=== PATIENT | male | born 1995 | race American Indian/Alaskan Native ===

== ENCOUNTER 2018-03-03 20:01 | Emergency (ER) | payer OTHER ==
[2018-03-03 20:53] VITALS: BP 125/78
[2018-03-04] MEDS ORDERED: PROTONIX PO ONE (01:23)
[2018-03-04] MEDS ORDERED: BENTYL PO ONE (01:23)
--- NOTE | 2018-03-04 01:28 | Emergency Department Report ---
ED General Adult HPI - General Chief complaint: Nausea/Vomiting/Diarrhea Stated complaint: INDIGESTION Time Seen by Provider: 03/03/18 23:40 Source: patient Mode of arrival: Ambulatory Limitations: No Limitations - History of Present Illness Initial comments: 22-year-old male comes in complaining of bloating, gas pockets of air, taking Tums and Prilosec which eases the pain but doesn't completely resolve the signs and symptoms. Patient reports a frequent nausea and bloating. He was told by his PCP to change his diet and sleep habits which patient reports he had done without symptom reported improving. Patient is accompanied by his dad. His denies any hematochezia no vomiting no diarrhea. -: month(s) (several) Location: abdomen Severity scale (0 -10): 9 Quality: other (bloating pressure) Consistency: intermittent Improves with: movement (OTC Prilosec but does not resolve the symptoms completely) - Related Data Previous Rx's Medication Instructions Recorded Last Taken Type Esomeprazole Magnesium [Nexium] 40 mg PO QDAY #30 capsule. 03/04/18 Unknown Rx Allergies Allergy/AdvReac Type Severity Reaction Status Date / Time No Known Allergies Allergy Verified 03/04/18 01:30 ED Review of Systems ROS: Stated complaint: INDIGESTION Other details as noted in HPI Constitutional: denies: chills, fever Cardiovascular: denies: chest pain, palpitations Endocrine: no symptoms reported Gastrointestinal: abdominal pain (epigastric bloating,), nausea, other (belching , feeling loaded). denies: vomiting, hematemesis, hematochezia Genitourinary: denies: urgency, dysuria Skin: denies: rash, lesions ED Past Medical Hx - Past Medical History Previous Medical History?: No - Surgical History Past Surgical History?: No - Social History Smoking Status: Never Smoker Substance Use Type: None - Medications Home Medications: Home Medications Medication Instructions Recorded Confirmed Last Taken Type Esomeprazole Magnesium [Nexium] 40 mg PO QDAY #30 capsule. 03/04/18 Unknown Rx ED Physical Exam - General Limitations: No Limitations General appearance: alert, in no apparent distress - Head Head exam: Present: atraumatic, normocephalic - Eye Eye exam: Present: normal appearance - Respiratory Respiratory exam: Present: normal lung sounds bilaterally. Absent: respiratory distress - Cardiovascular Cardiovascular Exam: Present: regular rate, normal rhythm. Absent: systolic murmur, diastolic murmur, rubs, gallop - GI/Abdominal GI/Abdominal exam: Present: tenderness (epigastric), normal bowel sounds. Absent: distended, guarding, rebound, rigid - Extremities Exam Extremities exam: Present: normal inspection - Neurological Exam Neurological exam: Present: alert, oriented X3 - Psychiatric Psychiatric exam: Present: normal affect, normal mood - Skin Skin exam: Present: warm, dry, intact, normal color. Absent: rash ED Course Vital Signs 03/03/18 20:40 Temperature 99.4 F Pulse Rate 85 Respiratory 18 Rate Blood Pressure 125/78 O2 Sat by Pulse 100 Oximetry ED Medical Decision Making - Medical Decision Making Patient has been evaluated by this provider fast track. Discussed the patient that his symptoms are chronic. Discussed the patient that he needs a full workup with GI doctor such as endoscopy her breath test to rule out H pyloric. I discussed the patient was given some Bentyl and Protonix and refer him to gastroenterology. Patient verbalized understanding. Critical care attestation.: If time is entered above; I have spent that time in minutes in the direct care of this critically ill patient, excluding procedure time. ED Disposition Clinical Impression: Indigestion Disposition: DC-01 TO HOME OR SELFCARE Is pt being admited?: No Does the pt Need Aspirin: No Condition: Stable Instructions: Chronic Indigestion (ED) Additional Instructions: Please take medication as prescribed. It is very important for you to follow- up with gastroenterology as she may need to have endoscopic and a workup for H. pylori. Prescriptions: Esomeprazole Magnesium [Nexium] 40 mg PO QDAY #30 capsule. Referrals: PRIMARY CARE, [Primary Care Provider] - 3-5 Days [facility] [Provider Group] - 3-5 Days Forms: Work/School Release Form(ED), Accompanied Note
== END 2018-03-04 01:55 | disposition home or self-care (01) ==
LOC: ED 20:01
DX: K30 Functional dyspepsia (principal)
CPT/HCPCS: 99282